=== PATIENT | male | born 1945 | race African-American/Black ===

== ENCOUNTER 2025-01-27 21:33 | Emergency (ER) | payer OTHER ==
[~2025-01-27] VITALS: Ht 177.8 cm; Wt 82.0 kg
[2025-01-27 21:50] VITALS: O2SAT 99
[2025-01-27 22:32] VITALS: TEMP 36.8
[2025-01-27] MEDS: TETANUS, DIPHTHERIA, PERTUSSIS VAC/PF 0.5ML (>10YR OLD) IM ONE (23:03)
[2025-01-28] MEDS ORDERED: ACETAMINOPHEN 325MG TABLET PO ONE
[2025-01-28] MEDS ORDERED: LIDOCAINE HCL 1% 20ML VIAL INFIL ONE
[2025-01-28] MEDS ORDERED: BO1 TP (00:09)
[2025-01-28 01:14] VITALS: BP 156/98; PULSE 82; RESP 18; O2SAT 100
== END 2025-01-28 01:15 | disposition home or self-care (01) ==
LOC: ER 21:33
DX: S61.217A Laceration without foreign body of left little finger without damage to nail, initial encounter (principal); S09.90XA Unspecified injury of head, initial encounter; M16.0 Bilateral primary osteoarthritis of hip; N40.0 Benign prostatic hyperplasia without lower urinary tract symptoms; I10 Essential (primary) hypertension; E78.00 Pure hypercholesterolemia, unspecified; G20.A1 Parkinson's disease without dyskinesia, without mention of fluctuations; Z79.899 Other long term (current) drug therapy; Z93.3 Colostomy status; Z88.2 Allergy status to sulfonamides; Z85.46 Personal history of malignant neoplasm of prostate; W19.XXXA Unspecified fall, initial encounter; Y93.01 Activity, walking, marching and hiking; Y92.89 Other specified places as the place of occurrence of the external cause; Y99.8 Other external cause status
CPT/HCPCS: 99285; 70450; 72170; 73130; 72125; 90715; 12001; 90471; J2003; A4606